=== PATIENT | female | born 1985 | race African-American/Black ===

== ENCOUNTER 2016-10-14 04:54 | Observation (INO) | payer MEDICAID ==
[~2016-10-14 04:54] MED LIST: PREN-96 PO
== END 2016-10-14 06:55 | disposition home or self-care (01) | DRG 566 ==
LOC: LDRP 04:54
PROVIDERS: ADMIT Specialist; ATTEND Specialist
DX: O36.8130 Decreased fetal movements, third trimester, not applicable or unspecified (principal); Z3A.37 37 weeks gestation of pregnancy
CPT/HCPCS: 59025; 76805; 76818; 81002; G0378

== ENCOUNTER 2016-10-22 08:00 | Inpatient (IN) | payer MEDICAID ==
[~2016-10-22] VITALS: Ht 30.5 cm; Wt 0.5 kg
[2016-10-22] MEDS ORDERED: LACTATED RINGER'S 1,000 ML IV SCH ×2 (08:55→09:12)
[2016-10-22] MEDS ORDERED: NITROGLYCERIN 0.4 MG SL TAB SL PRN (09:00)
[2016-10-22] MEDS ORDERED: MORPHINE SULFATE 4 MG/ML SYRG IV PRN (09:00)
[2016-10-22 09:46] LABS: Basophils # (auto) 0 uL; Basophils % (auto) 0.2 % (0.0-2.0); CONDITION Y; DEFINITIVE SEE PRINTOUT; Eosinophils # (auto) 0 uL; Eosinophils % (auto) 0.4 % (0.0-7.0); Hematocrit 30.4 % (36.0-46.0); Hemoglobin 10.2 g/dL (12.2-16.2); Lymphocytes # (auto) 2.4 uL; Lymphocytes % (auto) 24.7 % (10.0-50.0); Mean Corpuscular Hemoglobin 25.7 pg (28.0-32.0); Mean Corpuscular Hgb Conc. 33.5 g/dL (32.0-36.0); Mean Corpuscular Volume 76.7 fL (80.0-100.0); Mean Platelet Volume 7.7 fL (7.4-10.4); Monocytes # (auto) 0.8 uL; Neutrophils # (auto) 6.4 uL; Neutrophils % (auto) 66.7 % (37.0-80.0); Platelet Count (auto) 337 10^3/uL (140-450); Red Cell Distribution Width 15.9 % (11.6-16.0); White Blood Cell 9.6 10^3/uL (4.4-10.8)
[2016-10-22 09:47] LABS: Urine Bilirubin Negative (Negative); Urine Blood Negative /uL (Negative); Urine Color Yellow (Yellow); Urine Glucose Normal (Normal); Urine Ketone Negative (Negative); Urine Mucus FEW (None Seen); Urine Nitrite Negative (Negative); Urine RBC <1 /hpf (0 - 4); Urine Sperm PRESENT /hpf (None Seen); Urine Squamous Epithelial Cell MOD /hpf (<5)
[2016-10-22 09:56] LABS: INR 0.89 (0.9-1.15); Partial Thromboplastin Time 25.7 sec (22.64-33.71); Prothrombin Time 9.7 sec (9.37-12.3)
[2016-10-22 09:59] LABS: Albumin 2.1 g/dL (3.4-5.0); Calcium 7.9 mg/dL (8.5-10.1); Potassium 3.3 mmol/L (3.5-5.1)
[2016-10-22 10:01] LABS: BUN/Creatinine Ratio 15.9
[2016-10-22 10:03] LABS: Bilirubin, Total 0.4 mg/dL (0.2-1.0); Total Protein 6.1 g/dL (6.4-8.2)
[2016-10-22] MEDS ORDERED: MORPHINE SULF(PF) 0.5MG/ML 10ML VIAL ONE (12:15)
[2016-10-22] MEDS ORDERED: LACT. RINGERS/OXYTOCIN 20UNITS 1,000 ML IV SCH (13:15)
[2016-10-22] MEDS ORDERED: HYDROmorphone HCL 2 MG/ML VL IV PRN (13:15)
[2016-10-22] MEDS ORDERED: ONDANSETRON HCL 4 MG/2 ML VIAL IV PRN (13:15)
[2016-10-22] MEDS ORDERED: ONDANSETRON HCL 4 MG/2 ML VIAL ONE (14:37)
[2016-10-22] MEDS ORDERED: ePHEDrine SULFATE 50 MG/ML AMP ONE (14:38)
[2016-10-22] MEDS ORDERED: OXYTOCIN 10 UNIT/ML 10ML VIAL ONE (14:38)
[2016-10-22] MEDS: ceFAZolin 1GM/50ML D5W 50 ML IV SCH ×2 (15:00→22:19)
[2016-10-22] MEDS: KETOROLAC TROMETH 30 MG/ML 1ML VIAL IV PRN (15:08)
[2016-10-22 16:00] VITALS: BP 97/65
[2016-10-22 20:24] VITALS: BP 105/63
[2016-10-22 20:55] LABS: Basophils # (auto) 0 uL; Basophils % (auto) 0.2 % (0.0-2.0); CONDITION Y; DEFINITIVE SEE PRINTOUT; Eosinophils # (auto) 0 uL; Eosinophils % (auto) 0.1 % (0.0-7.0); Hematocrit 32.9 % (36.0-46.0); Hemoglobin 10.6 g/dL (12.2-16.2); Lymphocytes # (auto) 2.1 uL; Lymphocytes % (auto) 18.9 % (10.0-50.0); Mean Corpuscular Hemoglobin 25.1 pg (28.0-32.0); Mean Corpuscular Hgb Conc. 32.2 g/dL (32.0-36.0); Mean Corpuscular Volume 77.9 fL (80.0-100.0); Mean Platelet Volume 7.8 fL (7.4-10.4); Monocytes # (auto) 0.7 uL; Monocytes % (auto) 6.4 % (0.0-12.0); Neutrophils # (auto) 8.3 uL; Neutrophils % (auto) 74.4 % (37.0-80.0); Platelet Count (auto) 329 10^3/uL (140-450); Red Cell Distribution Width 15.9 % (11.6-16.0); White Blood Cell 11.1 10^3/uL (4.4-10.8)
[2016-10-22 23:53] VITALS: BP 107/66
[2016-10-23 04:00] VITALS: BP 110/74
[2016-10-23] MEDS: KETOROLAC TROMETH 30 MG/ML 1ML VIAL IV PRN (05:45)
[2016-10-23 05:49] LABS: Basophils # (auto) 0 uL; Basophils % (auto) 0.2 % (0.0-2.0); CONDITION Y; DEFINITIVE SEE PRINTOUT; Eosinophils # (auto) 0 uL; Eosinophils % (auto) 0.2 % (0.0-7.0); Hematocrit 28.7 % (36.0-46.0); Hemoglobin 9.5 g/dL (12.2-16.2); Lymphocytes # (auto) 1.7 uL; Lymphocytes % (auto) 19.2 % (10.0-50.0); Mean Corpuscular Hemoglobin 25.6 pg (28.0-32.0); Mean Corpuscular Hgb Conc. 33.1 g/dL (32.0-36.0); Mean Corpuscular Volume 77.2 fL (80.0-100.0); Mean Platelet Volume 7.5 fL (7.4-10.4); Monocytes # (auto) 0.7 uL; Monocytes % (auto) 7.6 % (0.0-12.0); Neutrophils # (auto) 6.6 uL; Neutrophils % (auto) 72.8 % (37.0-80.0); Platelet Count (auto) 313 10^3/uL (140-450); Red Cell Distribution Width 15.6 % (11.6-16.0)
[2016-10-23] MEDS: ceFAZolin 1GM/50ML D5W 50 ML IV SCH (06:31)
[2016-10-23 08:00] VITALS: BP 104/71
[2016-10-23] MEDS ORDERED: LACTATED RINGER'S 1,000 ML IV SCH ×2 (08:01→09:07)
[2016-10-23] MEDS ORDERED: BISACODYL 10 MG RECT SUPP PR PRN (08:15)
[2016-10-23] MEDS: SIMETHICONE 80 MG CHEWABLE TABLET PO SCH ×4 (09:00→21:55)
[2016-10-23] MEDS: DOCUSATE CALCIUM 240 MG CAP PO SCH (10:02)
[2016-10-23] MEDS: DOCUSATE SOD 100 MG CAP PO SCH ×2 (10:02→21:55)
[2016-10-23] MEDS: FERROUS SULFATE 325 MG TAB PO SCH ×2 (10:02→21:55)
[2016-10-23] MEDS: HYDROcodone-ACET 10/325MG TAB PO PRN ×2 (14:12→23:36)
[2016-10-23 16:20] VITALS: BP 125/65
[2016-10-23] MEDS: IBUPROFEN 800 MG TAB PO PRN (17:56)
[2016-10-23 19:00] VITALS: BP 126/75
[2016-10-23] MEDS ORDERED: diphenhdrAMINE HCL 25 MG CAP PO PRN (19:30)
[2016-10-23 23:30] VITALS: BP 122/75
[2016-10-24 04:30] VITALS: BP 115/71
[2016-10-24] MEDS: IBUPROFEN 800 MG TAB PO PRN ×2 (04:35→19:00)
[2016-10-24] MEDS: SIMETHICONE 80 MG CHEWABLE TABLET PO SCH ×4 (06:30→21:35)
[2016-10-24 08:39] VITALS: BP 122/60
[2016-10-24] MEDS: DOCUSATE CALCIUM 240 MG CAP PO SCH (09:43)
[2016-10-24] MEDS: DOCUSATE SOD 100 MG CAP PO SCH ×2 (09:43→21:35)
[2016-10-24] MEDS: FERROUS SULFATE 325 MG TAB PO SCH ×2 (09:43→21:35)
[2016-10-24] MEDS: HYDROcodone-ACET 10/325MG TAB PO PRN ×3 (10:38→21:35)
[2016-10-24 12:00] VITALS: BP 123/73
[2016-10-24 16:02] VITALS: BP 125/82
[2016-10-24 18:35] VITALS: BP 109/67
[2016-10-24 23:19] VITALS: BP 133/88
[2016-10-25 03:18] VITALS: BP 125/78
[2016-10-25] MEDS: HYDROcodone-ACET 10/325MG TAB PO PRN ×2 (03:22→08:02)
[2016-10-25] MEDS ORDERED: DOCUSATE CALCIUM 240 MG CAP PO ONE (05:00)
[2016-10-25] MEDS: SIMETHICONE 80 MG CHEWABLE TABLET PO SCH ×2 (05:32→08:02)
[2016-10-25] MEDS: IBUPROFEN 800 MG TAB PO PRN (05:33)
[2016-10-25 07:00] VITALS: BP 110/63
[2016-10-25] MEDS: FERROUS SULFATE 325 MG TAB PO SCH (08:02)
[2016-10-25] MEDS: DOCUSATE SOD 100 MG CAP PO SCH (08:02)
[2016-10-25 11:00] VITALS: BP 105/63
[2016-10-26] MEDS ORDERED: DOCUSATE CALCIUM 240 MG CAP PO SCH (10:00)
== END 2016-10-25 12:45 | disposition home or self-care (01) | DRG 540 ==
LOC: LDRP 08:00
PROVIDERS: ADMIT Obstetrics & Gynecology; ATTEND Obstetrics & Gynecology
PROC: 0UL70CZ Occlusion of Bilateral Fallopian Tubes with Extraluminal Device, Open Approach (ICD-10-PCS; 2016-10-22)
PROC: 10D00Z1 Extraction of Products of Conception, Low, Open Approach (ICD-10-PCS; principal; 2016-10-22 12:11)
DX: O34.219 Maternal care for unspecified type scar from previous cesarean delivery (principal); Z30.2 Encounter for sterilization; Z37.0 Single live birth; Z3A.40 40 weeks gestation of pregnancy
CPT/HCPCS: 36415; 59025; 59409; 80053; 81001; 81002; 85025; 85610; 85730; 86850; 86900; 86901; 96361; 96366; J0690; J1885; J2405; J2590

== ENCOUNTER 2017-03-02 11:24 | Emergency (ER) | payer MEDICAID ==
[~2017-03-02] VITALS: Ht 152.4 cm; Wt 112.9 kg
[2017-03-02 13:37] VITALS: BP 149/88
[2017-03-02] MEDS ORDERED: cefTRIAXone SOD 1,000 MG VL IM ONE ×2 (14:45)
== END 2017-03-02 15:13 | disposition home or self-care (01) ==
LOC: ER 11:24
DX: N61.0 Mastitis without abscess (principal)
CPT/HCPCS: 96372